=== PATIENT | male | born 1935 | race Caucasian/White ===

== ENCOUNTER 2016-07-03 08:42 | Outpatient (CLI) | payer MEDICARE, OTHER ==
[2016-07-03 09:50] LABS: eGFR (African) 54; eGFR (Non-African) 44
== END 2016-07-03 08:44 ==
LOC: LAB 08:42
PROVIDERS: ATTEND Internal Medicine Endocrinology, Diabetes & Metabolism
DX: E11.65 Type 2 diabetes mellitus with hyperglycemia (principal)
CPT/HCPCS: 36415; 80053; 80061; 83036

== ENCOUNTER 2016-10-02 07:40 | Outpatient (CLI) | payer MEDICARE, OTHER ==
[2016-10-02 08:31] LABS: eGFR (African) > 60; eGFR (Non-African) 52
== END 2016-10-02 07:42 ==
LOC: LAB 07:40
PROVIDERS: ATTEND Internal Medicine Endocrinology, Diabetes & Metabolism
DX: E11.65 Type 2 diabetes mellitus with hyperglycemia (principal)
CPT/HCPCS: 36415; 80053; 80061; 82043; 83036

== ENCOUNTER 2016-10-17 12:21 | Outpatient (CLI) | payer MEDICARE, OTHER | END 2016-10-17 12:22 | LOC: POD 12:21 | PROVIDERS: ATTEND Podiatrist | DX: B35.1 Tinea unguium (principal); M79.674 Pain in right toe(s); M79.675 Pain in left toe(s) | CPT/HCPCS: 11721; G0463 ==

== ENCOUNTER 2017-01-20 14:36 | Outpatient (CLI) | payer MEDICARE, OTHER | END 2017-01-20 14:37 | LOC: POD 14:36 | PROVIDERS: ATTEND Podiatrist | DX: B35.1 Tinea unguium (principal); M79.674 Pain in right toe(s); M79.675 Pain in left toe(s) | CPT/HCPCS: 11721; G0463 ==

== ENCOUNTER 2017-02-03 07:23 | Outpatient (CLI) | payer MEDICARE, OTHER ==
[2017-02-03 08:03] LABS: eGFR (African) 50; eGFR (Non-African) 41
== END 2017-02-03 10:00 ==
LOC: LAB 07:23
PROVIDERS: ATTEND Internal Medicine Endocrinology, Diabetes & Metabolism
DX: E11.65 Type 2 diabetes mellitus with hyperglycemia (principal)
CPT/HCPCS: 36415; 80053; 80061; 83036

== ENCOUNTER 2017-04-28 13:24 | Outpatient (CLI) | payer MEDICARE, OTHER | END 2017-04-28 13:25 | LOC: POD 13:24 | PROVIDERS: ATTEND Podiatrist | DX: B35.1 Tinea unguium (principal); M79.674 Pain in right toe(s); M79.675 Pain in left toe(s) | CPT/HCPCS: 11721; G0463 ==

== ENCOUNTER 2017-05-21 07:36 | Outpatient (CLI) | payer MEDICARE, OTHER | END 2017-05-21 07:37 | LOC: LAB 07:36 | PROVIDERS: ATTEND Family Medicine | DX: E03.9 Hypothyroidism, unspecified (principal) | CPT/HCPCS: 36415; 84443 ==

== ENCOUNTER 2017-06-12 07:02 | Outpatient (CLI) | payer MEDICARE, OTHER ==
[2017-06-12 07:49] LABS: eGFR (African) > 60; eGFR (Non-African) 56
== END 2017-06-12 07:10 ==
LOC: LAB 07:02
PROVIDERS: ATTEND Internal Medicine Endocrinology, Diabetes & Metabolism
DX: E11.65 Type 2 diabetes mellitus with hyperglycemia (principal)
CPT/HCPCS: 36415; 80053; 80061; 83036

== ENCOUNTER 2017-07-28 12:44 | Outpatient (CLI) | payer MEDICARE, OTHER | END 2017-07-28 12:45 | LOC: POD 12:44 | PROVIDERS: ATTEND Podiatrist | DX: B35.1 Tinea unguium (principal); M79.674 Pain in right toe(s); M79.675 Pain in left toe(s) | CPT/HCPCS: 11721; G0463 ==

== ENCOUNTER 2017-09-02 07:50 | Outpatient (CLI) | payer MEDICARE, OTHER ==
[2017-09-02 08:35] LABS: eGFR (African) > 60; eGFR (Non-African) 52
== END 2017-09-02 09:21 ==
LOC: LAB 07:50
PROVIDERS: ATTEND Internal Medicine Endocrinology, Diabetes & Metabolism
DX: E11.65 Type 2 diabetes mellitus with hyperglycemia (principal)
CPT/HCPCS: 36415; 80053; 80061; 82043; 82570; 83036; 84443

== ENCOUNTER 2017-12-24 08:19 | Outpatient (CLI) | payer MEDICARE, OTHER ==
[2017-12-24 09:06] LABS: eGFR (African) 32; eGFR (Non-African) 26
== END 2017-12-24 08:20 ==
LOC: LAB 08:19
PROVIDERS: ATTEND Internal Medicine Endocrinology, Diabetes & Metabolism
DX: E11.9 Type 2 diabetes mellitus without complications (principal)
CPT/HCPCS: 36415; 80053; 80061; 83036